=== PATIENT | female | born 1985 | race American Indian/Alaskan Native ===

== ENCOUNTER 2017-06-19 22:03 | Inpatient (IN) | payer OTHER ==
[2017-06-19] MEDS ORDERED: LACTATED RINGERS 1,000 ML IV ONE (22:56)
[2017-06-19] MEDS ORDERED: PITOCin/NS 20 UNIT/1000ML DRIP 20 UNITS/1,000 ML BAG IV SCH (23:45)
[2017-06-19] MEDS ORDERED: ePHEDrine SULFATE IV PRN (23:45)
[2017-06-19] MEDS ORDERED: STADOL IV PRN (23:45)
[2017-06-19] MEDS ORDERED: MINERAL OIL PO PRN (23:45)
[2017-06-19] MEDS ORDERED: LACTATED RINGERS 1,000 ML IV SCH (23:45)
[2017-06-20] MEDS ORDERED: ePHEDrine SULFATE IV PRN (00:10)
[2017-06-20] MEDS ORDERED: BRETHINE SUB-Q PRN (00:10)
[2017-06-20] MEDS ORDERED: BRETHINE IVP PRN (00:10)
[2017-06-20] MEDS ORDERED: ZOFRAN IV PRN ×2 (00:10→05:38)
[2017-06-20] MEDS ORDERED: MINERAL OIL PO PRN (00:10)
[2017-06-20] MEDS ORDERED: NARCAN 0.4 MG/1 ML IV PRN (00:10)
[2017-06-20] MEDS ORDERED: XYLOCAINE 2% INFILTRATI ONE (00:10)
--- NOTE | 2017-06-20 00:10 | History and Physical Report ---
History of Present Illness Date of examination: 06/20/17 Date of admission: 06/19/17 23:45 Chief complaint: SROM clear fluid @ 2200 History of present illness: Pt is a 31yo BF EDC ; EGA 39 0/7 weeks presnts to L&D complaining of SROM clear fluid @ 2200 followed by RUC's q 3-4 mins. She received care at [facility] since 29 weeks as a Transfer , and course has been unremarkable except for Bipolar Disorder, not currently on meds. records are available and GBS is negative. 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[employer] History: abnormal PAP smear, herpes Family/Genetic History: other (Thyroid disease) Social history: no significant social history, single - Obstetrical History Expected Date of Delivery: 06/26/17 Actual Gestation: 39 Week(s) 1 Day(s) : 2 Medications and Allergies Allergies Allergy/AdvReac Type Severity Reaction Status Date / Time aspirin Allergy Unknown Verified 06/20/17 03:38 sulfamethoxazole Allergy Hives Verified 06/20/17 01:16 [From Bactrim] trimethoprim [From Bactrim] Allergy Hives Verified 06/20/17 01:16 Home Medications Medication Instructions Recorded Confirmed Last Taken Type Acyclovir [Zovirax] 400 mg PO QDAY 06/20/17 06/20/17 06/19/17 History Vit-Fe Fumar-FA [ 1 tab PO QDAY 06/20/17 06/20/17 06/19/17 History Vitamin] Active Meds: Active Medications Butorphanol Tartrate (Stadol) 2 mg IV Q2H PRN PRN Reason: Pain , Severe (7-10) Ephedrine Sulfate (Ephedrine Sulfate) 10 mg IV Q2M PRN PRN Reason: Hypotension Fentanyl (Sublimaze) 100 mcg IV Q2H PRN PRN Reason: Labor Pain Lactated Ringer's (Lactated Ringers) 1,000 mls @ 125 mls/hr IV DIRECT ADRIAN Oxytocin/Sodium Chloride (Pitocin/Ns 20 Unit/1000ml Drip) 20 units in 1,000 mls @ 125 mls/hr IV DIRECT ADRIAN Mineral Oil (Mineral Oil) 30 ml PO QHS PRN PRN Reason: Constipation Review of Systems All systems: negative - Vital Signs Vital signs: Vital Signs Pulse Pulse Ox 85 93 06/19/17 22:23 06/19/17 22:23 Temp Pulse Resp BP Pulse Ox 87 125/76 100 06/20/17 00:08 06/19/17 22:24 06/20/17 00:08 - Physical Exam Breasts: Positive: deferred Cardiovascular: Regular rate Lungs: Positive: Clear to auscultation Abdomen: Positive: normal appearance Genitourinary (Female): Positive: normal external genitalia Vagina: Positive: normal moisture Uterus: Positive: enlarged Extremities: Positive: normal - Obstetrical FHR: category 1 Uterine Contraction Monitor Mode: External Cervical Dilatation: 3 Cervical Effacement Percentage: 60 station: -3 Uterine Contraction Pattern: Regular Uterine Tone Measurement Phase: Contraction Uterine Contraction Intensity: Moderate Results Result Diagrams: 06/19/17 00:15 All other labs normal. Assessment and Plan - Patient Problems (1) 39 weeks gestation of Onset Date: 06/20/17 Current Visit: Yes Status: Acute Plan to address problem: A: IUP @ 39 0/7 weeks in labor Bipolar Disorder P: Admit to L&D for expectant vaginal delivery (2) Bipolar 1 disorder Onset Date: 06/20/17 Current Visit: Yes Status: Chronic
[2017-06-20] MEDS: SUBLIMAZE IV PRN ×2 (00:31→04:48)
[2017-06-20 00:45] LABS: Hematocrit 35.1 % (30.3-42.9); Hemoglobin 11.7 gm/dl (10.1-14.3); Mean Corpuscular HGB Conc 33 % (30-34); Mean Corpuscular Hemoglobin 30 pg (28-32); Mean Corpuscular Volume 91 fl (79-97); Platelet Count 164 K/mm3 (140-440); Red Blood Count 3.88 M/mm3 (3.65-5.03); Red Cell Distribution Width 13.8 % (13.2-15.2); White Blood Count 11.2 K/mm3 (4.5-11.0)
[2017-06-20] MEDS ORDERED: PITOCin/NS 20 UNIT/1000ML DRIP 20 UNITS/1,000 ML BAG IV SCH ×2 (01:00→06:00)
[2017-06-20] MEDS ORDERED: LACTATED RINGERS 1,000 ML IV SCH (01:00)
[2017-06-20] MEDS ORDERED: PITOCin/NS 30 UNIT/500ML 30 UNITS/500 ML BAG IV SCH (01:00)
[2017-06-20] MEDS ORDERED: NARCAN 2 MG/2 ML ONE (04:47)
--- NOTE | 2017-06-20 05:37 | Procedure Note ---
OB Delivery Note - Delivery Date of Delivery: 06/20/17 Surgeon: MINDI ACUNA Estimated blood loss: 300cc - Vaginal Delivery presentation: vertex Delivery position: OA Intrapartum events: none Delivery induction: none Delivery augmentation: rupture of membranes, pitocin Delivery monitor: external FHT, external uterine Route of delivery: Delivery placenta: spontaneous Delivery cord: 3 umbilical vessels Episiotomy: none Delivery laceration: none Anesthesia: intravenous Delivery comments: delivered OA and placed on Mom's chest for [id number] bonding and delayed cord clamping. - Infant A at 1 minute: 8 at 5 minutes: 9 Infant Gender: Female (2964gms)
[2017-06-20] MEDS ORDERED: DULCOLAX PR PRN (05:38)
[2017-06-20] MEDS ORDERED: MILK OF MAGNESIA PO PRN (05:38)
[2017-06-20] MEDS ORDERED: TYLENOL PO PRN (05:38)
[2017-06-20] MEDS ORDERED: PHENERGAN PO PRN (05:38)
[2017-06-20] MEDS ORDERED: PHENERGAN PR PRN (05:38)
[2017-06-20] MEDS ORDERED: BENADRYL PO PRN (05:38)
[2017-06-20] MEDS ORDERED: TUCKS PAD TP PRN (05:38)
[2017-06-20] MEDS ORDERED: SODIUM CHLORIDE FLUSH SYRINGE 10 ML IV NR (06:00)
[2017-06-20] MEDS ORDERED: SENOKOT S PO SCH (06:00)
[2017-06-20] MEDS: MOTRIN PO SCH ×4 (06:58→21:59)
[2017-06-20] MEDS: COLACE PO SCH ×2 (10:45→21:55)
[2017-06-20] MEDS: PRENATAL VITAMIN PO SCH (10:45)
[2017-06-20] MEDS: NORCO 5/325 PO PRN ×2 (10:45→18:10)
[2017-06-20] MEDS: FEOSOL PO SCH ×2 (17:45→21:56)
[2017-06-20 18:17] LABS: Hematocrit 34.6 % (30.3-42.9); Hemoglobin 11.7 gm/dl (10.1-14.3)
[2017-06-21] MEDS ORDERED: BOOSTRIX IM ONE (06:00)
[2017-06-21] MEDS ORDERED: M-M-R II VACCINE SUB-Q ONE (06:05)
[2017-06-21] MEDS: MOTRIN PO SCH ×3 (06:27→17:27)
--- NOTE | 2017-06-21 08:59 | Progress Note ---
Assessment and Plan - Patient Problems (1) 39 weeks gestation of Onset Date: 06/20/17 Current Visit: Yes Status: Resolved (2) Bipolar 1 disorder Onset Date: 06/20/17 Current Visit: Yes Status: Resolved (3) (normal spontaneous vaginal delivery) Onset Date: 06/21/17 Current Visit: Yes Status: Resolved Plan to address problem: A: S/P - PPD #1 Doing well P: May go home today Subjective - Subjective Date of service: 06/21/17 Principal diagnosis: s/p - PPD #1 Interval history: Pt is feeling well without complaints. Bleeding improved. Patient reports: appetite normal, voiding normally, pain well controlled, flatus , ambulating normally [place]: doing well, nursing well Objective - Vital Signs Latest vital signs: Vital Signs Temp Pulse Resp BP Pulse Ox 06/21/17 06:27 16 06/21/17 00:20 98.3 F 70 20 98/60 98 06/20/17 21:59 18 06/20/17 16:43 98.3 F 64 18 98/55 06/20/17 12:00 97.5 F L 64 18 91/58 Intake and Output 06/20/17 06/21/17 06/21/17 22:59 06:59 14:59 Intake Total 480 240 Output Total 500 Balance -20 240 Intake: Oral 480 240 Output: Urine 500 Void 500 Other: Total, Intake Amount 480 240 Total, Output Amount 500 # Voids Void 1 - Exam Abdomen: Present: normal appearance, soft Uterus: Present: normal, firm, fundal height below umbilicus Extremities: Present: normal - Labs Labs: Laboratory Tests 06/19/17 06/19/17 06/19/17 00:15 00:15 00:15 WBC 11.2 H RBC 3.88 Hgb 11.7 Hct 35.1 MCV 91 MCH 30 MCHC 33 RDW 13.8 Plt Count 164 RPR Nonreactive Blood Type O POSITIVE Antibody Screen Negative 06/20/17 17:31 WBC RBC Hgb 11.7 Hct 34.6 MCV MCH MCHC RDW Plt Count RPR Blood Type Antibody Screen
[2017-06-21] MEDS: FEOSOL PO SCH (10:28)
[2017-06-21] MEDS: PRENATAL VITAMIN PO SCH (10:28)
[2017-06-21] MEDS: COLACE PO SCH (10:28)
--- NOTE | 2017-06-21 15:45 | Discharge Summary ---
Providers - Providers Date of Admission: 06/19/17 23:45 Date of discharge: 06/21/17 Attending physician: MINDI ACUNA Primary care physician: MINDI ACUNA Hospitalization Reason for admission: active labor, rupture of membranes, IUP at term Delivery: Episiotomy: none Laceration: none Other procedures: none complications: none Discharge diagnosis: IUP at term delivered [place] baby: female Hospital course: Unremarkable. Condition at discharge: Good Disposition: DC-01 TO HOME OR SELFCARE - Discharge Diagnoses (1) 39 weeks gestation of Status: Resolved (2) Bipolar 1 disorder Status: Resolved (3) (normal spontaneous vaginal delivery) Status: Resolved Plan - Discharge Medications Prescriptions: Ibuprofen [Motrin 600 MG tab] 600 mg PO Q6H #30 tablet Vit-Fe Fumar-FA [ Vitamin] 1 each PO QDAY #30 tablet - Provider Discharge Summary Activity: routine, no sex for 6 weeks, no heavy lifting 4 weeks, no strenuous exercise Diet: routine Instructions: routine Additional instructions: [] Smoking cessation referral if applicable(refer to patient education folder for contact #) [] Refer to [facility]'s [facility] Booklet Call your doctor immediately for: * Fever > 100.5 * Heavy vaginal bleeding ( >1 pad per hour) * Severe persistent headache * Shortness of breath * Reddened, hot, painful area to leg or breast * Drainage or odor from incision. * Keep incision clean and dry at all times and follow doctor's instructions regarding bathing/showering - Follow up plan Follow up: MINDI ACUNA MD [Primary Care Provider] - 6 Weeks
[2017-06-21 19:01] VITALS: BP 92/46
== END 2017-06-21 18:10 | disposition home or self-care (01) | DRG 775 ==
LOC: TRG 22:03 → LD 23:45 → OB 06-20 07:30
PROVIDERS: ADMIT Obstetrics & Gynecology; ATTEND Obstetrics & Gynecology
PROC: 10E0XZZ Delivery of Products of Conception, External Approach (ICD-10-PCS; principal; 2017-06-20)
PROC: 3E0234Z Introduction of Serum, Toxoid and Vaccine into Muscle, Percutaneous Approach (ICD-10-PCS; 2017-06-21)
DX: O99.344 Other mental disorders complicating childbirth (principal); F31.9 Bipolar disorder, unspecified; Z3A.39 39 weeks gestation of pregnancy; Z37.0 Single live birth; Z23 Encounter for immunization; Z88.6 Allergy status to analgesic agent; Z88.2 Allergy status to sulfonamides; Z88.8 Allergy status to other drugs, medicaments and biological substances
CPT/HCPCS: 36415; 85014; 85018; 85027; 86592; 86765; 86850; 86900; 86901; 99211; G0463; J0595; J2310; J2405; J2590; J3010; J7120